=== PATIENT | female | born 1950 | race Hispanic/Latino ===

== ENCOUNTER 2018-07-07 15:33 | Observation (INO) | payer OTHER ==
[~2018-07-07] VITALS: Ht 152.4 cm; Wt 109.3 kg
[~2018-07-07 15:33] MED LIST: ATOR20TA65 PO; ERGO500014 PO; METF-444 PO
[2018-07-07] MEDS ORDERED: ONDANSETRON ODT 4 MG TAB ONE (17:17)
[2018-07-07] MEDS ORDERED: MORPHINE SULFATE 4 MG/1ML SYG ONE ×2 (17:18→21:58)
[2018-07-07 17:38] LABS: BASOPHILS % (AUTO) 0.6 % (0.0-5.0); EOSINOPHILS % (AUTO) 0.1 % (0.0-8.0); HEMATOCRIT 39.7 % (36-48); LYMPHOCYTES % (AUTO) 14.6 % (21.0-51.0); MEAN CORPUSCULAR HEMOGLOBIN 26.6 pg (27.0-33.0); MEAN CORPUSCULAR HGB CONC 32.1 g/dL (32.0-36.0); MEAN CORPUSCULAR VOLUME 82.9 fL (79-99); MONOCYTES % (AUTO) 7.8 % (3.0-13.0); NEUTROPHILS % (AUTO) 76.9 % (40.0-77.0); PLATELET COUNT (AUTO) 241 K/uL (130-400); RED BLOOD CELL COUNT(AUTO) 4.79 MIL/uL (4.00-5.50); RED CELL DISTRIBUTION WIDTH 15.3 % (11.0-15.5); WHITE BLOOD COUNT (AUTO) 13.3 K/uL (4.8-10.8)
[2018-07-07 17:55] LABS: INR 0.95 (0.85-1.15); PARTIAL THROMBOPLASTIN TIME 23.9 SEC (26.3-35.5)
[2018-07-07 18:09] LABS: CREATININE 0.8 mg/dL (0.5-1.5); POTASSIUM 3.6 mmol/L (3.5-5.1)
[2018-07-07 18:13] LABS: ALBUMIN 2.9 g/dL (3.5-5.0); BILIRUBIN,TOTAL 0.2 mg/dL (0.2-1.0); TOTAL PROTEIN, SERUM 6.8 g/dL (6.0-8.3)
[2018-07-07 21:53] VITALS: BP 151/67
[2018-07-07] MEDS ORDERED: PARO-66 PO (21:54)
[2018-07-07] MEDS ORDERED: ACETAMINOPHEN 325 MG TAB PO PRN ×2 (22:00)
[2018-07-07] MEDS ORDERED: SODIUM CHLORIDE 0.9% 10 ML VIAL IVP SCH (22:00)
[2018-07-07] MEDS ORDERED: ONDANSETRON HCL 4 MG/2 ML VIAL IVP PRN (22:00)
[2018-07-07] MEDS: MORPHINE SULFATE 4 MG/1ML SYG IVP PRN (22:06)
[2018-07-07] MEDS ORDERED: HYDRALAZINE HCL 20 MG/ML VIAL IV PRN (22:15)
[2018-07-07] MEDS ORDERED: MORPHINE SULFATE 2 MG/ML 1ML SYG IVP PRN (22:15)
[2018-07-07 22:21] LABS: APPEARANCE,URINE Cloudy (CLEAR); BILIRUBIN,URINE Negative (NEGATIVE); COLOR,URINE Dark Yellow (YELLOW); GLUCOSE, URINE (UA) Negative (NEGATIVE); KETONES,URINE Trace mg/dL (NEGATIVE); LEUKOCYTE ESTERASE ,URINE Moderate (NEGATIVE); NITRATE,URINE Positive (NEGATIVE); OCCULT BLOOD,URINE Negative (NEGATIVE); PH,URINE 6.5 (5.0-8.0); PROTEIN,URINE Trace (NEGATIVE)
[2018-07-07 22:45] LABS: RBC,URINE 0-1 /HPF (0-1)
[2018-07-07 22:46] LABS: BACTERIA,URINE Many /HPF (None Seen); CALCIUM OXALATE CRYSTALS,UR Many /LPF (None Seen)
[2018-07-08] VITALS (20 sets, daily range): BP systolic 96–160; BP diastolic 49–93
[2018-07-08 02:02] LABS: HEMATOCRIT 38.7 % (36-48); MEAN CORPUSCULAR HEMOGLOBIN 26.9 pg (27.0-33.0); MEAN CORPUSCULAR HGB CONC 32.4 g/dL (32.0-36.0); MEAN CORPUSCULAR VOLUME 82.9 fL (79-99); NUCLEATED RED BLOOD CELLS 0.1 % (0.0-0.19); PLATELET COUNT (AUTO) 217 K/uL (130-400); RED BLOOD CELL COUNT(AUTO) 4.67 MIL/uL (4.00-5.50); RED CELL DISTRIBUTION WIDTH 15.1 % (11.0-15.5); WHITE BLOOD COUNT (AUTO) 11.4 K/uL (4.8-10.8)
[2018-07-08 02:12] LABS: CREATININE 0.7 mg/dL (0.5-1.5); POTASSIUM 3.6 mmol/L (3.5-5.1)
[2018-07-08 02:22] LABS: CREATINE KINASE, TOTAL 83 U/L (21-232); MYOGLOBIN 40 ng/mL (10-92); TROPONIN I < 0.04 ng/mL (0.00-0.06)
[2018-07-08] MEDS: MORPHINE SULFATE 4 MG/1ML SYG IVP PRN ×3 (04:23→20:59)
[2018-07-08] MEDS: INSULIN R PO SSI SQ SCH ×4 (06:37→20:42)
[2018-07-08 07:57] LABS: CREATINE KINASE, TOTAL 80 U/L (21-232); MYOGLOBIN 42 ng/mL (10-92); TROPONIN I < 0.04 ng/mL (0.00-0.06)
[2018-07-08] MEDS: PANTOPRAZOLE SODIUM 40 MG TABLET.DR PO SCH (09:48)
--- NOTE | 2018-07-08 14:45 | NUR ---
TO OR PATIENT TRANSFERRED TO OR VIA HOSPITAL BED IN STABLE CONDITION. FAMILY WAS SENT DOWNSTAIRS TO WAIT FOR MD ONCE HE GETS DONE WITH THE PROCEDURE.
[2018-07-08] MEDS ORDERED: SUCCINYLCHOLINE 200MG/10ML SYR ONE (14:59)
[2018-07-08] MEDS ORDERED: LIDOCAINE PF 2% 5ML ABBOJECT ONE (14:59)
[2018-07-08] MEDS ORDERED: PROPOFOL 10 MG/ML 20ML VIAL IV ONE (14:59)
[2018-07-08] MEDS ORDERED: DEXAMETHASONE SOD PHOSPHATE 10MG/ML 1ML VIAL ONE (15:00)
[2018-07-08] MEDS ORDERED: GLYCOPYRROLATE 1 MG/5 ML SYRINGE ONE (15:00)
[2018-07-08] MEDS ORDERED: ROCURONIUM 10MG/1ML SYR 10 MG/ML ML ONE (15:00)
[2018-07-08] MEDS ORDERED: NEOSTIGMINE 5MG/5ML SYR IV ONE (15:00)
[2018-07-08] MEDS ORDERED: MIDAZOLAM HCL 1 MG/ML 2ML VIAL ONE (15:00)
[2018-07-08] MEDS ORDERED: ONDANSETRON HCL 4 MG/2 ML VIAL ONE (15:00)
[2018-07-08] MEDS ORDERED: FENTANYL CITRATE PF 50 MCG/1 ML 2ML VIAL ONE (15:01)
--- NOTE | 2018-07-08 16:57 | NUR ---
BACK FROM OR PATIENT RETURNED FROM PACU IN STABLE CONDITION. SHE HAS AN NAHUN BANDAGE AROUND HER LEFT SHOULDER AND HER CHEST. SHE IS AWAKE AND ALERT. SHE HAS BEEN REORIENTED TO ROOM AND USE OF CALL LIGHT. FAMILY HAS BEEN NOTIFIED. POST OP V/S HAVE BEEN INITIATED, WILL CONTINUE TO MONITOR.
--- NOTE | 2018-07-08 17:10 | NUR ---
POSS PT ORDER? MET W PATIENTSPOUSE, FRIENDS AT BEDSIDE, AAOX3, ENG SPEAKING, S/P CLOSED REDUCITON- PT LIVES WITH SPOUSE, USES WALKER TO AMBULATE; NO OTHER DME, NO STAITS, NO PROVIDER NO ; WILL ASK PRIMARY RN TO ASK DR. IVAN FOR PT ORDER- PT USES WALKER TO AMBULATE AT ALL TIME- NOW WITH NEW DISLOCATED SHOULDER(MULTIPLE RECURRENCE) MAY NEED EVALUATION TO ASSURE SAFE MOBILITY CM TO FOLLOW Addendum: 07/08/18 at 2138 by JASVIR CAGLE RN CM Amended: Links added.
[2018-07-09] VITALS: BP 136/64
[2018-07-09 04:12] VITALS: BP 136/71
[2018-07-09] MEDS: INSULIN R PO SSI SQ SCH ×2 (05:52→12:38)
[2018-07-09 07:56] VITALS: BP 125/60
[2018-07-09] MEDS: PANTOPRAZOLE SODIUM 40 MG TABLET.DR PO SCH (08:41)
[2018-07-09 12:18] VITALS: BP 140/73
--- NOTE | 2018-07-09 13:00 | NUR ---
INSTRUCTIONS DISCHARGE INSTRUCTIONS GIVEN TO PATIENT AND FAMILY USING TEACH BACK. NEW PRESCRIPTIONS PLACED IN PACKET ALONG WITH ALL PRINTED INSTRUCTIONS AND MEDICATION INFORMATION. F/U APPOINTMENT WILL BE MADE BY PATIENT ON NEXT REGULAR BUSINESS DAY D/T TODAY BEING A WEEKEND. SHOULDER IMMOBILIZER IN PLACE. NO QUESTIONS OR CONCERNS VOICED.
--- NOTE | 2018-07-09 13:50 | NUR ---
TRANSPORT PATIENT TRANSPORTED TO PRIVATE VEHICLE VIA WHEELCHAIR BY THIS NURSE. ALL PERSONAL BELONGINGS WITH FAMILY. SHE IS IN STABLE CONDITION WITH NO C/O PAIN OR DISCOMFORT AT THIS TIME.
== END 2018-07-09 13:50 | disposition home or self-care (01) ==
LOC: EDH 15:33 → EDHIP 19:10 → INTOOBSV 19:10 → 4AH 21:20
PROVIDERS: ADMIT Internal Medicine Critical Care Medicine; ATTEND Internal Medicine Critical Care Medicine
DX: M24.412 Recurrent dislocation, left shoulder (principal); E11.9 Type 2 diabetes mellitus without complications; E66.9 Obesity, unspecified; E78.5 Hyperlipidemia, unspecified; I10 Essential (primary) hypertension; M19.90 Unspecified osteoarthritis, unspecified site; F32.9 Major depressive disorder, single episode, unspecified; F41.9 Anxiety disorder, unspecified; W19.XXXA Unspecified fall, initial encounter; Y93.89 Activity, other specified; Y92.009 Unspecified place in unspecified non-institutional (private) residence as the place of occurrence of the external cause; Y99.8 Other external cause status; Z90.710 Acquired absence of both cervix and uterus; Z79.01 Long term (current) use of anticoagulants
CPT/HCPCS: 23655; 36415 ×2; 71045; 73030; 76000; 80048; 80053; 81001; 82550 ×3; 82948 ×6; 83874 ×3; 84484 ×3; 85025; 85027; 85610; 85730; 87077; 87088; 87186; 93005; 96372 ×2; 96374; 96375; 96376; 99284; A4606; G0378 ×43; J0330; J1100; J1815 ×2; J2001; J2250; J2270 ×5; J2405 ×2; J2704; J2710; J3010; J3490

== ENCOUNTER 2018-09-09 12:36 | Emergency (ER) | payer OTHER ==
[~2018-09-09 12:36] MED LIST changes: -ERGO500014 PO; +PARO-66 PO
[2018-09-09] MEDS ORDERED: ASPIRIN 325 MG TABLET ONE (13:07)
[2018-09-09 13:12] LABS: BASOPHILS % (AUTO) 0.5 % (0.0-5.0); EOSINOPHILS % (AUTO) 0.3 % (0.0-8.0); HEMATOCRIT 39.9 % (36-48); LYMPHOCYTES % (AUTO) 25.2 % (21.0-51.0); MEAN CORPUSCULAR HGB CONC 32.6 g/dL (32.0-36.0); MEAN CORPUSCULAR VOLUME 82.6 fL (79-99); MONOCYTES % (AUTO) 5.1 % (3.0-13.0); NEUTROPHILS % (AUTO) 68.9 % (40.0-77.0); PLATELET COUNT (AUTO) 275 K/uL (130-400); RED BLOOD CELL COUNT(AUTO) 4.83 MIL/uL (4.00-5.50); RED CELL DISTRIBUTION WIDTH 15.5 % (11.0-15.5); WHITE BLOOD COUNT (AUTO) 11.2 K/uL (4.8-10.8)
[2018-09-09 13:31] LABS: INR 0.95 (0.85-1.15); PARTIAL THROMBOPLASTIN TIME 26.7 SEC (26.3-35.5)
[2018-09-09 13:40] LABS: CREATININE 0.6 mg/dL (0.5-1.5)
[2018-09-09 13:45] LABS: B-TYPE NATRIURETIC PEPTIDE 73 pg/mL (0-100)
[2018-09-09 13:50] LABS: ALBUMIN 3.3 g/dL (3.5-5.0); BILIRUBIN,TOTAL 0.3 mg/dL (0.2-1.0); TOTAL PROTEIN, SERUM 6.7 g/dL (6.0-8.3)
== END 2018-09-09 14:50 | disposition home or self-care (01) ==
LOC: EDH 12:36
DX: F41.9 Anxiety disorder, unspecified (principal); R60.0 Localized edema; I10 Essential (primary) hypertension; E78.5 Hyperlipidemia, unspecified; E11.9 Type 2 diabetes mellitus without complications; Z90.710 Acquired absence of both cervix and uterus
CPT/HCPCS: 36415; 71045; 80053; 82550; 83874; 83880; 84484; 85025; 85378; 85610; 85730; 93005

== ENCOUNTER 2018-12-03 17:56 | Observation (INO) | payer OTHER ==
[~2018-12-03] VITALS: Ht 144.8 cm; Wt 110.7 kg
[2018-12-03 18:32] LABS: BASOPHILS % (AUTO) 2.9 % (0.0-5.0); EOSINOPHILS % (AUTO) 0.6 % (0.0-8.0); HEMATOCRIT 40.5 % (36-48); MEAN CORPUSCULAR HGB CONC 32.3 g/dL (32.0-36.0); MEAN CORPUSCULAR VOLUME 83.4 fL (79-99); MONOCYTES % (AUTO) 6.6 % (3.0-13.0); NEUTROPHILS % (AUTO) 63.9 % (40.0-77.0); PLATELET COUNT (AUTO) 239 K/uL (130-400); RED BLOOD CELL COUNT(AUTO) 4.86 MIL/uL (4.00-5.50); RED CELL DISTRIBUTION WIDTH 14.7 % (11.0-15.5); WHITE BLOOD COUNT (AUTO) 10.1 K/uL (4.8-10.8)
[2018-12-03 18:37] LABS: CREATININE 0.7 mg/dL (0.5-1.5); POTASSIUM 3.7 mmol/L (3.5-5.1)
[2018-12-03 18:40] LABS: INR 0.94 (0.85-1.15); PARTIAL THROMBOPLASTIN TIME 24.7 SEC (26.3-35.5); PROTHROMBIN TIME 9.9 SEC (9.6-11.6)
[2018-12-03 18:57] LABS: ALBUMIN 3.3 g/dL (3.5-5.0); BILIRUBIN,TOTAL 0.3 mg/dL (0.2-1.0); TOTAL PROTEIN, SERUM 7.4 g/dL (6.0-8.3)
[2018-12-03 19:11] LABS: APPEARANCE,URINE Clear (CLEAR); BILIRUBIN,URINE Negative (NEGATIVE); COLOR,URINE Yellow (YELLOW); GLUCOSE, URINE (UA) Negative (NEGATIVE); KETONES,URINE Negative (NEGATIVE); LEUKOCYTE ESTERASE ,URINE Negative (NEGATIVE); NITRATE,URINE Negative (NEGATIVE); OCCULT BLOOD,URINE Negative (NEGATIVE); PROTEIN,URINE Negative (NEGATIVE); UROBILINOGEN,URINE 0.2 mg/dL (0.2-1.0)
[2018-12-03] MEDS ORDERED: ACETAMINOPHEN 325 MG TAB ONE (23:47)
[2018-12-03] MEDS ORDERED: ASPIRIN 325 MG TABLET ONE (23:47)
[2018-12-04] VITALS (9 sets, daily range): BP systolic 111–177; BP diastolic 62–106
[2018-12-04] MEDS ORDERED: ONDANSETRON HCL 4 MG/2 ML VIAL IVP PRN (03:15)
[2018-12-04] MEDS ORDERED: ACETAMINOPHEN 325 MG TAB PO PRN (03:15)
[2018-12-04 05:13] LABS: BASOPHILS % (AUTO) 0.3 % (0.0-5.0); EOSINOPHILS % (AUTO) 0.8 % (0.0-8.0); HEMATOCRIT 38.7 % (36-48); MEAN CORPUSCULAR HEMOGLOBIN 26.7 pg (27.0-33.0); MEAN CORPUSCULAR HGB CONC 32.2 g/dL (32.0-36.0); MEAN CORPUSCULAR VOLUME 83.1 fL (79-99); MONOCYTES % (AUTO) 7.4 % (3.0-13.0); NEUTROPHILS % (AUTO) 66.5 % (40.0-77.0); PLATELET COUNT (AUTO) 239 K/uL (130-400); RED BLOOD CELL COUNT(AUTO) 4.65 MIL/uL (4.00-5.50); RED CELL DISTRIBUTION WIDTH 14.8 % (11.0-15.5)
[2018-12-04 05:37] LABS: BILIRUBIN,TOTAL 0.4 mg/dL (0.2-1.0); CREATININE 0.7 mg/dL (0.5-1.5); POTASSIUM 3.7 mmol/L (3.5-5.1); TOTAL PROTEIN, SERUM 6.8 g/dL (6.0-8.3)
[2018-12-04] MEDS: ASPIRIN 81 MG EC TAB PO SCH (09:03)
[2018-12-04] MEDS ORDERED: MELA5TAB21 PO (13:35)
[2018-12-04] MEDS ORDERED: CA C1TAB98 PO (13:35)
[2018-12-04] MEDS ORDERED: METF-444 PO (13:35)
[2018-12-04] MEDS ORDERED: ATOR20TA65 PO (13:35)
[2018-12-04] MEDS ORDERED: DONE5TAB33 PO (13:35)
[2018-12-04] MEDS ORDERED: MONT10TA24 PO (13:35)
[2018-12-04] MEDS ORDERED: HYDRALAZINE HCL 20 MG/ML VIAL IV PRN (15:30)
--- NOTE | 2018-12-04 18:00 | NUR ---
cm note met with patient and states resides athome with spouse, pt is extemely weak lately, requires assist with ambulation, only dme she has in a w.c. states agreeable to snf as per md recommmendation. prefers [facility]. choice letter signed, Rose. Addendum: 12/04/18 at 1802 by JOSLYN HERNANDEZ CM Amended: Links added.
[2018-12-04] MEDS ORDERED: ATORVASTATIN CALCIUM 20 MG TABLET PO SCH (21:00)
[2018-12-04] MEDS ORDERED: MELATONIN 5 MG PO SCH (21:00)
[2018-12-04] MEDS ORDERED: PAROXETINE HCL 20 MG TABLET PO SCH (21:00)
[2018-12-04] MEDS ORDERED: MONTELUKAST SODIUM 10 MG TAB PO SCH (21:00)
[2018-12-04] MEDS ORDERED: METFORMIN HCL 500 MG TAB.SR.24H PO SCH (21:00)
[2018-12-05] VITALS: BP 120/68
--- NOTE | 2018-12-05 02:20 | NUR ---
ANXIETY EPISODE PATIENT RESTLESS, CRYING, NOT FOLLOWING COMMANDS IN BED. FAMILY REPORTS PT HAS ABOUT FOUR EPISODES A MONTH LIKE THIS. BS 117, BP 187/90, HR 60, SpO2 100% ON 2 L NC. PUPILS 3, REACTIVE AND RESPONSIVE TO LIGHT. SEIZURE PRECAUTIONS IN PLACE. HOB ELEVATED TO 35 DEGREES. FAMILY AT BEDSIDE. BENCHMARK MD REED WORKER PAGED- MALATHI BACA ORDERED A STAT CT AND APRESOLINE NOW ORDERED ON JUL. WILL CONTINUE TO CLOSELY MONITOR PATIENT. SAFETY PRECAUTIONS IN PLACE.BED LOCKED IN LOWEST POSITION, CALL LIGHT WITHIN REACH.
--- NOTE | 2018-12-05 02:55 | NUR ---
POST CT PATIENT AWAKE, ALERT, ORIENTED, FOLLOWING COMMANDS. BP 155/71, HR 58, SpO2 99% 2 L NC. FAMILY REMAINS AT BEDSIDE. PATIENT REPORTS TO NOT KNOWING WHAT HAPPENED. UNCLEAR OF WHO HER FAMILY MEMBERS ARE. SEIZURE PRECAUTIONS IN PLACE. BED LOCKED IN LOWEST POSITION.
[2018-12-05 04:00] VITALS: BP 155/71
[2018-12-05 08:26] VITALS: BP 134/70
[2018-12-05] MEDS: ASPIRIN 81 MG EC TAB PO SCH (08:41)
[2018-12-05] MEDS ORDERED: CALCIUM 600 + VITAMIN D 400 TABLET PO SCH (09:00)
[2018-12-05] MEDS ORDERED: DONEPEZIL HCL 5 MG TAB PO SCH (09:00)
[2018-12-05 11:48] VITALS: BP 148/60
--- NOTE | 2018-12-05 12:19 | NUR ---
Referral to [facility] in process Spoke to rep Merino from [facility] on the phone and advised him that a request was going ot come form [facility] for pt for short term rehab. Madie has already seen patient and PASRR/pkt was sent. Patient aware [facility] has to approve.Now with new orders from Dr. Richardson to investigate poss seizures Addendum: 12/05/18 at 1644 by JASVIR CAGLE RN CM Amended: Links added.
--- NOTE | 2018-12-05 16:32 | NUR ---
RD Notification Pt admitted for Syncope. RD notification received for Morbid Obesity, Pt BMI 52.8. Pt with exam in progress at time of visit. Pt tolerating Heart healthy diet with no report of GI distress and PO intake at 100%. Pt LBM 12/03/18. Pt monitored labs: Glu 119, CO2 33, Ca 8.4, Alb 3.0. Pending Morbid Obesity diet education. RD to follow up. Please notify RD as additional nutrition concerns arise. Thank you. Addendum: 12/05/18 at [address] Amended: Links added.
[2018-12-05] MEDS ORDERED: LEVE500T8 PO (16:56)
[2018-12-05] MEDS ORDERED: LEVO500T2 PO (16:56)
[2018-12-05 16:58] VITALS: BP 145/79
--- NOTE | 2018-12-05 17:00 | NUR ---
CHANGE TO DC PLANS? REC'D CALL FROM ERIK ANDREWS CHANGE IN DC PLANS-AIR BRUSH OPERATOR AT BEDSIDE,PASSED PONE TO FR[facility]ES[facility], FAMILY AND PATIENT WANT TO GO HOME, ADVISED PT WOULD BE PRESCRIBED A WALKER FOR BALANCE AND SUPPORT AND WILL FOLLOW UP WITH CONSULTS. PT DECLINING SNF FOR PHYSICAL THERAPY. WILL CHANGE DISPOSITION IN CHART AND WILL INFORM RETAMA . Addendum: 12/06/18 at 0922 by JASVIR CAGLE RN CM Amended: Links added.
[2018-12-05] MEDS ORDERED: LEVOFLOXACIN 500 MG/D5W 100 ML 100 ML IV ONE (18:00)
--- NOTE | 2018-12-05 19:00 | NUR ---
DISCHARGE INSTRUCTIONS GIVEN AND ALL QUESTIONS ANSWERED. IV DISCONTINUED WITH INNER CANNULA INTACT.. INSTRUCTED PATIENT TO FOLLOW UP WITH DR. LEE, DR. KWONG, AND DR. HU. EMPHASIED IMPORTANCE TO SEE EACH AND EVERY DOCTOR. INSTRUCTED TO FILLED PRESCRIPTIONS ORDERED.
[2018-12-05] MEDS ORDERED: LEVETIRACETAM 500 MG TABLET PO SCH (21:00)
[2018-12-06] MEDS ORDERED: LEVOFLOXACIN 500 MG TABLET PO SCH (09:00)
== END 2018-12-05 19:00 | disposition home or self-care (01) ==
LOC: EDH 17:56 → EDHIP 22:40 → 3CH 12-04 01:44
PROVIDERS: ADMIT Internal Medicine Critical Care Medicine; ATTEND Internal Medicine Critical Care Medicine
DX: R55 Syncope and collapse (principal); E11.9 Type 2 diabetes mellitus without complications; E66.01 Morbid (severe) obesity due to excess calories; E78.5 Hyperlipidemia, unspecified; G47.33 Obstructive sleep apnea (adult) (pediatric); I10 Essential (primary) hypertension; R32 Unspecified urinary incontinence; Z68.43 Body mass index [BMI] 50.0-59.9, adult; Z83.3 Family history of diabetes mellitus; Z91.81 History of falling; Z79.899 Other long term (current) drug therapy
CPT/HCPCS: 36415 ×2; 70450 ×2; 70551; 71045; 73030; 80053 ×2; 81003; 82550; 82948 ×8; 83874; 84484 ×2; 85025 ×2; 85378; 85610; 85730; 93005; 93880; 95816; 96365; 96375; 97039; 97116; 97161; 99284; A4510; A4600; C8929; G0378 ×44; G8978; G8979; G8980; G8981; G8982; G8983; J0360; J1956

== ENCOUNTER → 2019-06-02 | Outpatient (CLI) | payer OTHER ==
[~2019-06-02] MED LIST changes: +CA C1TAB98 PO; +DONE5TAB33 PO; +LEVE-43 PO; +LEVO500T2 PO; +MELA5TAB21 PO; +MONT10TA26 PO
== END | disposition home or self-care (01) ==
LOC: SHCH 10:37
PROVIDERS: ATTEND Internal Medicine Cardiovascular Disease
DX: R01.1 Cardiac murmur, unspecified (principal)
CPT/HCPCS: 93306; 93356

== ENCOUNTER 2021-04-04 08:35 | Emergency (ER) | payer OTHER ==
[~2021-04-04] VITALS: Ht 149.9 cm; Wt 111.6 kg
[~2021-04-04 08:35] MED LIST changes: +MONT-39 PO; -MONT10TA26 PO
[2021-04-04] MEDS ORDERED: IPRATROPIUM/ALBUTEROL SULFATE 3 ML SOLUTION IH SCH (09:30)
[2021-04-04 09:32] LABS: BASOPHILS % (AUTO) 0.3 % (0.0-5.0); EOSINOPHILS % (AUTO) 0.7 % (0.0-8.0); HEMATOCRIT 42.9 % (36-48); LYMPHOCYTES % (AUTO) 26.3 % (21.0-51.0); MEAN CORPUSCULAR HEMOGLOBIN 25.9 pg (27.0-33.0); MEAN CORPUSCULAR HGB CONC 31.2 g/dL (32.0-36.0); MEAN CORPUSCULAR VOLUME 82.8 fL (79-99); MONOCYTES % (AUTO) 6.6 % (3.0-13.0); NEUTROPHILS % (AUTO) 65.9 % (40.0-77.0); PLATELET COUNT (AUTO) 239 K/uL (130-400); RED BLOOD CELL COUNT(AUTO) 5.18 MIL/uL (4.00-5.50); RED CELL DISTRIBUTION WIDTH 15.9 % (11.0-15.5); WHITE BLOOD COUNT (AUTO) 8.8 K/uL (4.8-10.8)
[2021-04-04 09:44] LABS: CREATININE 0.7 mg/dL (0.5-1.5); POTASSIUM 3.9 mmol/L (3.5-5.1)
[2021-04-04 09:54] LABS: ALBUMIN 3.5 g/dL (3.5-5.0); BILIRUBIN,TOTAL 0.4 mg/dL (0.2-1.0); TOTAL PROTEIN, SERUM 7.7 g/dL (6.0-8.3)
[2021-04-04 09:59] LABS: B-TYPE NATRIURETIC PEPTIDE 49 pg/mL (0-100)
[2021-04-04] MEDS ORDERED: ALBUTEROL 0.083% 2.5 MG/3 ML INH IH PRN (15:00)
[2021-04-04] MEDS: SOLU-MEDROL 125MG VIAL IVP SCH ×2 (15:00→15:28)
[2021-04-04] MEDS ORDERED: ALBU1.252 IH (15:06)
[2021-04-04] MEDS ORDERED: IPRNEB IH (15:06)
[2021-04-04] MEDS ORDERED: SOLU-MEDROL 125MG VIAL ONE (15:06)
[2021-04-04 15:45] VITALS: BP 166/60
== END 2021-04-04 15:40 | disposition home or self-care (01) ==
LOC: EDH 08:35
DX: J45.909 Unspecified asthma, uncomplicated (principal); J18.9 Pneumonia, unspecified organism; Z20.822 Contact with and (suspected) exposure to COVID-19; E11.9 Type 2 diabetes mellitus without complications; I10 Essential (primary) hypertension; Z79.84 Long term (current) use of oral hypoglycemic drugs; Z79.899 Other long term (current) drug therapy
CPT/HCPCS: 36415; 71045; 80053; 82550; 83880; 84484; 85025; 85378; 87635; 93005; 94640 ×2; 96374; 99285; C9803; J2930

== ENCOUNTER 2022-03-09 11:53 | Emergency (ER) | payer OTHER ==
[~2022-03-09 11:53] MED LIST changes: +ALBU1.252 IH; +IPRNEB IH
[2022-03-09 12:49] LABS: BASOPHILS % (AUTO) 0.1 % (0.0-5.0); EOSINOPHILS % (AUTO) 0.6 % (0.0-8.0); LYMPHOCYTES % (AUTO) 16.3 % (21.0-51.0); MEAN CORPUSCULAR HEMOGLOBIN 26.1 pg (27.0-33.0); MEAN CORPUSCULAR VOLUME 81.8 fL (79-99); MONOCYTES % (AUTO) 9.1 % (3.0-13.0); NEUTROPHILS % (AUTO) 73.6 % (40.0-77.0); PLATELET COUNT (AUTO) 256 K/uL (130-400); RED BLOOD CELL COUNT(AUTO) 5.01 MIL/uL (4.00-5.50); RED CELL DISTRIBUTION WIDTH 15.1 % (11.0-15.5); WHITE BLOOD COUNT (AUTO) 11.8 K/uL (4.8-10.8)
[2022-03-09] MEDS ORDERED: 0.9%NACL 1000ML 1,000 ML IV ONE (13:00)
[2022-03-09 13:03] LABS: CREATININE 0.7 mg/dL (0.5-1.5); POTASSIUM 3.6 mmol/L (3.5-5.1)
[2022-03-09 13:08] LABS: TOTAL PROTEIN, SERUM 7.2 g/dL (6.0-8.3)
[2022-03-09 13:16] LABS: ALCOHOL, BLOOD < 3 mg/dL (0-10)
[2022-03-09 13:19] LABS: APPEARANCE,URINE CLEAR (CLEAR); BILIRUBIN,URINE NEGATIVE (NEGATIVE); COLOR,URINE LIGHT-YELLOW (YELLOW); GLUCOSE, URINE (UA) NEGATIVE (NEGATIVE); KETONES,URINE NEGATIVE (NEGATIVE); LEUKOCYTE ESTERASE ,URINE 75 Leu/uL (NEGATIVE); NITRATE,URINE 2+ (NEGATIVE); OCCULT BLOOD,URINE NEGATIVE (NEGATIVE); PH,URINE 6.5 (5.0-8.0); PROTEIN,URINE 10 mg/dL (NEGATIVE); UROBILINOGEN,URINE 0.2 mg/dL (0.2-1.0)
[2022-03-09 13:21] LABS: ACETAMINOPHEN < 1 mcg/mL (10-30); SALICYLATE < 2.8 mg/dL (2.8-20.0)
[2022-03-09 13:24] LABS: BACTERIA,URINE MOD /HPF (None Seen); MUCUS,URINE RARE LPF (None Seen); SQUAMOUS EPITHELIAL CELL,UR RARE /HPF (0-2)
[2022-03-09 13:28] LABS: AMPHET/METH SCREEN,URINE NEGATIVE (NEGATIVE); BARBITURATE SCREEN, URINE NEGATIVE (NEGATIVE); BENZODIAZEPINES SCREEN,URINE NEGATIVE (NEGATIVE); CANNABINOID SCREEN,URINE NEGATIVE (NEGATIVE); COCAINE SCREEN,URINE NEGATIVE (NEGATIVE); OPIATE SCREEN,URINE NEGATIVE (NEGATIVE); PHENCYCLIDINE SCREEN,URINE NEGATIVE (NEGATIVE)
[2022-03-09] MEDS ORDERED: CEPH500B PO (17:07)
[2022-03-09 17:25] VITALS: BP 155/65
== END 2022-03-09 17:31 | disposition home or self-care (01) ==
LOC: EDH 11:53
DX: N39.0 Urinary tract infection, site not specified (principal); R45.851 Suicidal ideations; E11.9 Type 2 diabetes mellitus without complications; I10 Essential (primary) hypertension; Z79.899 Other long term (current) drug therapy; Z79.84 Long term (current) use of oral hypoglycemic drugs
CPT/HCPCS: 99284; 96360; 84484; 80053; 80305; 85025; 87088; 82948 ×4; 36415; 93005; 81001; G0481; J7030; 87077; 87186

== ENCOUNTER → 2022-06-26 | Outpatient (CLI) | payer OTHER ==
[~2022-06-26] MED LIST changes: +CEPH500B PO; +PARO-149 PO; -PARO-66 PO
== END | disposition home or self-care (01) ==
LOC: RAH 08:13
PROVIDERS: ATTEND Family Medicine
DX: R10.9 Unspecified abdominal pain (principal); M54.9 Dorsalgia, unspecified
CPT/HCPCS: 76700

== ENCOUNTER → 2022-07-21 | Outpatient (CLI) | payer OTHER | END | disposition home or self-care (01) | LOC: RAH 07:58 | PROVIDERS: ATTEND Family Medicine | DX: G45.9 Transient cerebral ischemic attack, unspecified (principal); I77.89 Other specified disorders of arteries and arterioles; H54.61 Unqualified visual loss, right eye, normal vision left eye | CPT/HCPCS: 93880 ==

== ENCOUNTER → 2022-07-30 | Outpatient (CLI) | payer OTHER ==
[2022-07-30 12:48] LABS: CREATININE 0.7 mg/dL (0.5-1.5)
== END | disposition home or self-care (01) ==
LOC: LAB 12:02
PROVIDERS: ATTEND Family Medicine
DX: D44.6 Neoplasm of uncertain behavior of carotid body (principal)
CPT/HCPCS: 36415; 82565; 84520

== ENCOUNTER → 2022-08-07 | Outpatient (CLI) | payer OTHER ==
[~2022-08-07] MED LIST changes: +IOHEXOL-350 75 ML VIAL IV ONE
== END | disposition home or self-care (01) ==
LOC: RAH 07:35
PROVIDERS: ATTEND Family Medicine
DX: D44.6 Neoplasm of uncertain behavior of carotid body (principal); R22.1 Localized swelling, mass and lump, neck; J33.8 Other polyp of sinus; J32.0 Chronic maxillary sinusitis; Z97.2 Presence of dental prosthetic device (complete) (partial)
CPT/HCPCS: 70492; Q9967

== ENCOUNTER 2022-11-01 10:44 | Emergency (ER) | payer OTHER ==
[~2022-11-01] VITALS: Ht 152.4 cm; Wt 108.9 kg
[~2022-11-01 10:44] MED LIST changes: -IOHEXOL-350 75 ML VIAL IV ONE
[2022-11-01] MEDS ORDERED: GUAIFENESIN SUGAR-FREE 100 MG/5 ML UDCUP PO SCH (11:30)
[2022-11-01] MEDS ORDERED: ACETAMINOPHEN 325 MG TAB PO ONE (11:30)
[2022-11-01 11:40] LABS: BASOPHILS % (AUTO) 0.3 % (0.0-5.0); EOSINOPHILS % (AUTO) 1.5 % (0.0-8.0); HEMATOCRIT 39.3 % (36-48); LYMPHOCYTES % (AUTO) 21.3 % (21.0-51.0); MEAN CORPUSCULAR HEMOGLOBIN 25.9 pg (27.0-33.0); MEAN CORPUSCULAR HGB CONC 31.6 g/dL (32.0-36.0); MEAN CORPUSCULAR VOLUME 82.2 fL (79-99); MONOCYTES % (AUTO) 9.3 % (3.0-13.0); NEUTROPHILS % (AUTO) 67.1 % (40.0-77.0); PLATELET COUNT (AUTO) 222 K/uL (130-400); RED BLOOD CELL COUNT(AUTO) 4.78 MIL/uL (4.00-5.50); RED CELL DISTRIBUTION WIDTH 15.6 % (11.0-15.5); WHITE BLOOD COUNT (AUTO) 7.9 K/uL (4.8-10.8)
[2022-11-01 11:48] LABS: CREATININE 0.7 mg/dL (0.5-1.5); POTASSIUM 3.6 mmol/L (3.5-5.1)
[2022-11-01 11:52] LABS: ALBUMIN 3.1 g/dL (3.5-5.0)
[2022-11-01 12:18] LABS: B-TYPE NATRIURETIC PEPTIDE 55 pg/mL (0-100)
[2022-11-01 12:22] LABS: APPEARANCE,URINE CLEAR (CLEAR); BILIRUBIN,URINE NEGATIVE (NEGATIVE); COLOR,URINE COLORLESS (YELLOW); GLUCOSE, URINE (UA) NEGATIVE (NEGATIVE); KETONES,URINE NEGATIVE (NEGATIVE); LEUKOCYTE ESTERASE ,URINE NEGATIVE Leu/uL (NEGATIVE); NITRATE,URINE NEGATIVE (NEGATIVE); OCCULT BLOOD,URINE NEGATIVE (NEGATIVE); PH,URINE 6.5 (5.0-8.0); PROTEIN,URINE NEGATIVE (NEGATIVE); UROBILINOGEN,URINE 0.2 mg/dL (0.2-1.0)
[2022-11-01] MEDS ORDERED: NIRM1TAB5 PO (13:31)
[2022-11-01] MEDS ORDERED: BENZ-39 PO (13:31)
[2022-11-01 13:43] VITALS: BP 146/72
== END 2022-11-01 13:48 | disposition home or self-care (01) ==
LOC: EDH 10:44
DX: U07.1 COVID-19 (principal); J45.909 Unspecified asthma, uncomplicated; E11.9 Type 2 diabetes mellitus without complications; E78.00 Pure hypercholesterolemia, unspecified; F03.90 Unspecified dementia, unspecified severity, without behavioral disturbance, psychotic disturbance, mood disturbance, and anxiety; F41.9 Anxiety disorder, unspecified; I10 Essential (primary) hypertension; Z79.899 Other long term (current) drug therapy
CPT/HCPCS: 36415; 71045; 80053; 81003; 83605; 83880; 84484; 85025; 85378; 87804; 93005

== ENCOUNTER 2022-11-15 16:23 | Emergency (ER) | payer OTHER ==
[~2022-11-15] VITALS: Ht 152.4 cm; Wt 108.9 kg
[~2022-11-15 16:23] MED LIST changes: +BENZ-39 PO; +NIRM1TAB5 PO
[2022-11-15 19:04] LABS: APPEARANCE,URINE CLEAR (CLEAR); BILIRUBIN,URINE NEGATIVE (NEGATIVE); COLOR,URINE LIGHT-YELLOW (YELLOW); GLUCOSE, URINE (UA) NEGATIVE (NEGATIVE); KETONES,URINE NEGATIVE (NEGATIVE); LEUKOCYTE ESTERASE ,URINE NEGATIVE Leu/uL (NEGATIVE); NITRATE,URINE NEGATIVE (NEGATIVE); OCCULT BLOOD,URINE NEGATIVE (NEGATIVE); PROTEIN,URINE NEGATIVE (NEGATIVE); UROBILINOGEN,URINE 0.2 mg/dL (0.2-1.0)
[2022-11-15 19:05] LABS: BACTERIA,URINE RARE /HPF (None Seen); RBC,URINE 0-1 /HPF (0-1); SQUAMOUS EPITHELIAL CELL,UR RARE /HPF (0-2); WBC,URINE 0-1 /HPF (0-1)
[2022-11-15] MEDS ORDERED: LIDO1ADH82 TP (19:12)
[2022-11-15 19:25] VITALS: BP 159/76; PULSE 80; RESP 17
== END 2022-11-15 19:59 | disposition home or self-care (01) ==
LOC: EDH 16:23
DX: S00.03XA Contusion of scalp, initial encounter (principal); I10 Essential (primary) hypertension; E11.9 Type 2 diabetes mellitus without complications; E78.00 Pure hypercholesterolemia, unspecified; F03.94 Unspecified dementia, unspecified severity, with anxiety; J45.909 Unspecified asthma, uncomplicated; Z79.84 Long term (current) use of oral hypoglycemic drugs; Z79.899 Other long term (current) drug therapy; Z90.710 Acquired absence of both cervix and uterus; Z98.890 Other specified postprocedural states; W18.39XA Other fall on same level, initial encounter; Y93.89 Activity, other specified; Y92.89 Other specified places as the place of occurrence of the external cause; Y99.8 Other external cause status
CPT/HCPCS: 70450; 71045; 72125; 72170; 81001; 93005

== ENCOUNTER → 2023-07-13 | Outpatient (CLI) | payer OTHER ==
[~2023-07-13] MED LIST changes: +LIDO1ADH82 TP
[2023-07-13 12:15] LABS: CREATININE 0.7 mg/dL (0.5-1.5); POTASSIUM 4.4 mmol/L (3.5-5.1)
== END | disposition home or self-care (01) ==
LOC: LAB 10:58
PROVIDERS: ATTEND Internal Medicine Cardiovascular Disease
DX: I10 Essential (primary) hypertension (principal)
CPT/HCPCS: 36415; 80048

== ENCOUNTER → 2023-07-23 | Outpatient (CLI) | payer OTHER ==
[~2023-07-23] MED LIST changes: +IOHEXOL 350 MG/ML 100ML INFUS..BTL IV ONE
== END | disposition home or self-care (01) ==
LOC: RAH 09:04
PROVIDERS: ATTEND Internal Medicine Cardiovascular Disease
DX: D44.6 Neoplasm of uncertain behavior of carotid body (principal); I77.89 Other specified disorders of arteries and arterioles
CPT/HCPCS: 70492; Q9967

== ENCOUNTER → 2023-09-02 | Outpatient (CLI) | payer OTHER ==
[~2023-09-02] MED LIST changes: -IOHEXOL 350 MG/ML 100ML INFUS..BTL IV ONE
[2023-09-07 13:24] LABS: COLLECTION PERIOD,URINE 24 HR; TOTAL VOLUME 24HRS,URINE 2610 mL; TOTAL VOLUME,CREAT CLR 2610 mL; TPROTEIN U,24HR CALC 157 mg/24HR (0-165)
[2023-09-07 13:25] LABS: CREATININE CLEARANCE,URINE 68 ml/min (75-115); CREATININE URINE RANDOM 31 mg/dL (95-135); CREATININE,SERUM FOR CRCL 0.7 mg/dL (0.6-1.3); PATIENT WEIGHT,URINE 250.2 LBS
[2023-09-07 13:26] LABS: TPROTEIN TIMED,URINE < 6 mg/dL
== END | disposition home or self-care (01) ==
LOC: LAB 09:30
PROVIDERS: ATTEND Internal Medicine Cardiovascular Disease
DX: D44.7 Neoplasm of uncertain behavior of aortic body and other paraganglia (principal)
CPT/HCPCS: 82575; 83150; 83835; 84156; 84585